=== PATIENT | male | born 1965 | race Caucasian/White ===

== ENCOUNTER 2017-02-17 14:05 | Emergency (ER) | payer MEDICAID, OTHER ==
[~2017-02-17] VITALS: Ht 177.8 cm; Wt 79.4 kg
[2017-02-17 15:30] VITALS: BP 98/76
== END 2017-02-17 15:00 | disposition home or self-care (01) ==
LOC: ER 14:11
DX: S13.4XXA Sprain of ligaments of cervical spine, initial encounter (principal); Z90.89 Acquired absence of other organs; V49.49XA Driver injured in collision with other motor vehicles in traffic accident, initial encounter; Y93.89 Activity, other specified; Y92.89 Other specified places as the place of occurrence of the external cause; Y99.8 Other external cause status
CPT/HCPCS: 99281; A4606; Z7610; Z7502

== ENCOUNTER 2017-02-18 08:57 | Emergency (ER) | payer SELFPAY ==
[~2017-02-18] VITALS: Ht 177.8 cm; Wt 79.4 kg
[2017-02-18 09:04] VITALS: BP 142/91
== END 2017-02-18 10:09 | disposition home or self-care (01) ==
LOC: ER 08:59
DX: Z04.1 Encounter for examination and observation following transport accident (principal); R51 Headache; Z90.89 Acquired absence of other organs; V49.9XXA Car occupant (driver) (passenger) injured in unspecified traffic accident, initial encounter; Y93.89 Activity, other specified; Y92.410 Unspecified street and highway as the place of occurrence of the external cause; Y99.8 Other external cause status
CPT/HCPCS: 70450-TC; A4606; Z7610